=== PATIENT | male | born 1965 | race Caucasian/White ===

== ENCOUNTER 2022-02-12 09:52 | Emergency (ER) | payer BC, SELFPAY ==
[2022-02-12 10:15] VITALS: BP 133/94; PULSE 79; RESP 19; TEMP 36.7; O2SAT 96; BMI 34.9
--- NOTE | 2022-02-12 10:38 | HMH.EDUTC ---
[facility] [place] Impression: TMJ (temporomandibular joint disorder) Disposition: Home, Self-Care Condition on Discharge: Good Instructions: TMJ Syndrome (Alternative Therapy), DI for Temporomandibular Disorder Additional Instructions: follow up with pcp mouth guard to sleep in to see if it helps with pain steroids watch glucose while on med Prescriptions: predniSONE [Prednisone 20mg Tab] 20 mg PO BID #10 tab Prescription Printed Referrals: Kole Farrell MD [Primary Care Provider] - Time of Disposition: 11:51 Medical Decision Making - Lewis Inquiry Pt receiving controlled substance: No Vital Signs: 02/12/22 10:15 Temperature 98.0 F Temperature Source Oral Pulse Rate [Right Brachial] 79 Respiratory Rate 19 Blood Pressure [Right Arm] 133/94 H Blood Pressure Mean [Right Arm] 107 Blood Pressure Source [Right Arm] Automatic Cuff Blood Pressure Position [Right Arm] Sitting 02 Sat by Pulse Oximetry 96 Oxygen Delivery Method Room Air - Lab Data Lab Results 02/12/22 10:46: WBC 8.6, RBC 4.97, Hgb 14.8, Hct 45.0, MCV 90.5, MCH 29.8, MCHC 33.0, RDW 14.6, Plt Count 233, MPV 9.3, Neut % (Auto) 73.8, Lymph % (Auto) 17.4, Scott % (Auto) 5.5, Eos % (Auto) 2.4, Baso % (Auto) 0.9, Neut # (Auto) 6.4, Lymph # (Auto) 1.5, Scott # (Auto) 0.5, Eos # (Auto) 0.2, Baso # (Auto) 0.1 02/12/22 10:46: Sodium 136, Potassium 3.7, Chloride 100, Carbon Dioxide 26, Anion Gap 13.7, BUN 15, Creatinine 0.90, Estimated Creat Clear 158, Estimated GFR 88, Est GFR ( Amer) 106, Glucose 248 H, Calcium 8.1 L, Total Creatine Kinase 86, CK-MB (CK-2) 0.5, CK-MB (CK-2) Rel Index 0.6, Troponin I < 0.01 Result diagrams: 02/12/22 10:46 02/12/22 10:46 Orders (Tests/Meds): ORDERS Category Date Time Status ECG Request by /Nse Stat Y 02/12/22 10:42 [place] [facility] [place] - General Chief complaint: Urgent [facility] Stated complaint: left side jaw pain Time Seen by Provider: 02/12/22 10:42 Mode of Arrival: Ambulatory Source of Information: Patient Limitations: No Limitations Description of Symptoms (Recalled from Triage Doc. by RN): PATIENT C/O SEVERE LEFT JAW PAIN X 4 MONTHS THAT IS GETTING WORSE HEENT Symptoms (Recalled from RN notes): Yes Resp Symptoms (Recalled from RN notes): No Skin Symptoms (Recalled from RN notes): No MS Symptoms (Recalled from RN notes): No Functional Status (Recalled from RN notes): WNL - History of Present Illness Provider Complaint: 56 yr old male presents for left jaw pain for 4 months. Pt states he has been seen by den and had no issues. pt states the pain is in the joint by ear and causes his ear to hurt. - Related Data Home Medications Medication Instructions Recorded Confirmed Amlodipine Besylate [Amlodipine 10 mg PO DAILY 05/30/18 06/03/18 10mg Tab] Dapagliflozin Propanediol [Farxiga] 10 mg PO DAILY 05/30/18 06/03/18 Fenofibrate 150 mg PO DAILY 05/30/18 06/03/18 Nebivolol HCl [Bystolic] 10 mg PO DAILY 05/30/18 06/03/18 Pioglitazone HCl 30 mg PO DAILY 05/30/18 06/03/18 Sitagliptin Phos/Metformin HCl 1 each PO DAILY 05/30/18 06/03/18 [Janumet Xr 50-1,000 mg Tablet] hydroCHLOROthiazide [HCTZ 25mg 25 mg PO DAILY 05/30/18 06/03/18 tab] lisinopriL [Lisinopril 40mg Tablet] 40 mg PO DAILY 05/30/18 06/03/18 Previous Rx's Medication Instructions Recorded predniSONE [Prednisone 20mg 20 mg PO BID #10 tab 02/12/22 Tab] Allergies Allergy/AdvReac Type Severity Reaction Status Date / Time No Known Allergies Allergy Verified 06/03/18 12:16 - Worker's Comp Is this a Worker's Comp case?: No [facility] History - Hepatitis A Screen Drug use history?: No High risk sexual behaviors?: No History of sexually transmitted infection?: No Currently employed?: No Childcare worker?: No Do you have indoor plumbing?: Yes Do you have electricity?: Yes Attestation statement:: This patient has been screened for Hepatitis A risk factors. I have reviewed the
--- NOTE | 2022-02-12 11:05 | ECG_ITS ---
APPROVED REPORT Exam: Resting ECG HR:58 bpm ECG Measurements Heart Rate 58 AXES LA 176 P 14 QRSd 82 QRS 44 QT 432 T 64 QTc 430 Conclusion SINUS BRADYCARDIA BORDERLINE ECG UNCONFIRMED REPORT Electronically signed by : Kole Hoffmann MD 02/12/2022 20:08:14
[2022-02-12 11:16] LABS: Basophils # 0.1 K/mm3 (0-0.2); Basophils % 0.9 % (0.1-2.0); Chloride 100 mmol/L (98-107); Eosinophils # 0.2 K/mm3 (0.0-0.4); Eosinophils % 2.4 % (0.1-12.0); Hemoglobin 14.8 g/dL (14.1-18.0); Lymphocytes # 1.5 K/mm3 (0.7-4.5); Lymphocytes % 17.4 % (10-50); Mean Corpuscular Hemoglobin 29.8 pg (27.0-31.2); Mean Corpuscular Volume 90.5 fl (80-94); Mean Platelet Volume 9.3 fl (7.4-10.4); Monocytes # 0.5 K/mm3 (0.1-1.0); Monocytes % 5.5 % (1.7-9.3); Neutrophils # 6.4 K/mm3 (1.8-7.8); Neutrophils % 73.8 % (37.0-80.0); Platelet Count 233 K/mm3 (142-424); Potassium 3.7 mmoL/L (3.5-5.1); Red Blood Count 4.97 M/mm3 (4.60-6.20); Red Cell Distribution Width 14.6 % (11.5-17.5); Sodium 136 mmol/L (136-145); White Blood Count 8.6 K/mm3 (4.8-10.8)
[2022-02-12 11:19] LABS: Anion Gap 13.7 mEq/L (5-15); Blood Urea Nitrogen 15 mg/dl (9-20); Calcium 8.1 mg/dl (8.4-10.2); Carbon Dioxide 26 mmol/L (22.0-30.0); Creatine Kinase 86 U/L (55-170); Creatinine Clearance Estimated 158 mL/min (50-200); Estimated Glomerular Filt Rate 88 ml/min (>60); GFR (African American) 106 ML/MIN (>60); Glucose 248 mg/dl (74-100)
[2022-02-12 11:29] LABS: CKMB Relative Index 0.6 U/L (0-4.0); Creatine Kinase MB 0.5 ng/ml (0.0-2.03)
[2022-02-12 11:35] LABS: Troponin I < 0.01 ng/ml (0.00-0.034)
[2022-02-12 11:58] VITALS: BP 133/94; PULSE 79; RESP 19; TEMP 36.7; O2SAT 96
== END 2022-02-12 12:00 | disposition home or self-care (01) ==
PROVIDERS: Emergency Provider Nurse Practitioner Family; PCP Family Medicine
DX: M26.602 Left temporomandibular joint disorder, unspecified (principal); I10 Essential (primary) hypertension; E11.9 Type 2 diabetes mellitus without complications; H92.09 Otalgia, unspecified ear; Z79.899 Other long term (current) drug therapy
CPT/HCPCS: 80048; 82550; 82553; 84484; 85025; 93005; 99213; G0463

== ENCOUNTER → 2022-05-22 15:33 | Outpatient (CLI) | payer BC, SELFPAY ==
--- NOTE | 2022-05-31 11:12 | PC.NURSE ---
[id number] [facility] ORDER ID - [id number] 05/17/22 - 07/15/22
== END ==
PROVIDERS: PCP Family Medicine; Visit Provider Specialist
DX: G47.33 Obstructive sleep apnea (adult) (pediatric) (principal); R06.83 Snoring; I10 Essential (primary) hypertension
CPT/HCPCS: G0399